=== PATIENT | female | born 1955 | race Caucasian/White ===

== ENCOUNTER 2018-01-20 22:03 | Emergency (ER) | payer SELFPAY ==
--- NOTE | 2018-01-20 22:44 | NUR ---
Reinaldo cho in [facility] - 01/20/18 at 2245 by MASOUD INFORMED BY NURSE THAT PT TOOK BENADRYL, FELT BETTER AND LEFT"
== END 2018-01-20 22:46 | disposition left against medical advice (07) ==
LOC: ER 22:04
DX: Z53.21 Procedure and treatment not carried out due to patient leaving prior to being seen by health care provider (principal)